=== PATIENT | female | born 1970 | race Caucasian/White ===

== ENCOUNTER 2017-07-12 19:06 | Emergency (ER) | payer OTHER ==
--- NOTE | 2017-07-12 22:07 | RAD ---
INDICATION: Jaw and left arm pain COMPARISON: Chest x-ray June 30, 2012 TECHNIQUE: Single AP portable view of the chest was obtained. FINDINGS: Image quality is compromised due to the relative inferiority of a portable chest x-ray. The heart and mediastinum exhibit normal size and contour. The lungs are grossly clear. There is no evidence of a large pleural effusion. Visualized bones are normal for the patient's age. IMPRESSION: No radiographic evidence for acute cardiopulmonary abnormality on this portable chest x-ray.
[2017-07-12 22:56] LABS: ABS Basophils 0.1 10^3/ul (0-0.2); ABS Eosinophils 0.2 10^3/ul (0-0.6); ABS Lymphocytes 1.3 10^3/ul (1.0-4.8); ABS Monocytes 0.6 10^3/ul (0-0.8); ABS Neutrophils 5.2 10^3/ul (1.5-7.7)
--- NOTE | 2017-07-12 22:58 | ED ---
HPI Chest Pain - HPI Summary HPI Summary: Patient complains of cough 1 month, an episode of chest discomfort last night for a couple minutes, sudden onset right jaw pain radiating to left jaw today for about 5-10 minutes with left upper arm pain. Symptoms are resolved with no active symptoms here in the ED currently. Patient denies fever, sore throat, SOB, N/V/D, abdominal pain, change in urinary BM. Medical history is HTN. Denies prior cardiac history. Parents both had cardiac disease in their 70s. Nonsmoker. Denies legal or illegal stimulants except for coffee. Denies any recent increase in fatigue, or CP, SOB with exertion. - History of Current Complaint Chief Complaint: EDFacialInjury Time Seen by Provider: 07/12/17 21:15 Hx Obtained From: Patient Hx Last Menstrual Period: 09/16/15 Pain Intensity: 0 - Allergy/Home Medications Allergies/Adverse Reactions: Allergies Allergy/AdvReac Type Severity Reaction Status Date / Time No Known Allergies Allergy Verified 07/12/17 21:53 PMH/Surg Hx/FS Hx/Imm Hx Endocrine/Hematology History: Reports: Hx Anemia Cardiovascular History: Reports: Hx Hypertension - Cancer History Hx Chemotherapy: No Hx Radiation Therapy: No - Surgical History Surgery Procedure, Year, and Place: T&A Infectious Disease History: No Infectious Disease History: Reports: Hx Shingles Denies: Traveled Outside the [place] in Last 30 Days - Family History Known Family History: Positive: None, Hypertension - mother and father - Social History Alcohol Use: Occasionally Hx Substance Use: No Substance Use Type: Reports: None Hx Tobacco Use: No Smoking Status (MU): Never Smoked Tobacco Review of Systems Constitutional: Negative Eyes: Negative ENT: Negative Positive: Chest Pain Positive: Cough Gastrointestinal: Negative Genitourinary: Negative Positive: Other Skin: Negative Neurological: Negative Psychological: Normal All Other Systems Reviewed And Are Negative: Yes Physical Exam - Summary Physical Exam Summary: Full range of motion of jaw with out pain. Bilateral jaws nontender to palpation. No intraoral lesions. ENT exam normal. Submandibular lymph nodes nontender to palpation. No indication of mastoid erythema or tenderness bilaterally. Full range of motion of left arm with no indication of pain at shoulder, elbow or wrist joints. Lung sounds CTAB. CP from last night nonreproducible with palpation No abnormalities noted on physical exam in area of thyroid Triage Information Reviewed: Yes Vital Signs On Initial Exam: Initial Vitals Temp Pulse Resp BP Pulse Ox 97.5 F 92 16 180/100 99 07/12/17 19:14 07/12/17 19:14 07/12/17 19:14 07/12/17 19:14 07/12/17 19:14 Vital Signs Reviewed: Yes Appearance: Positive: Well-Appearing Skin: Positive: Warm Head/Face: Positive: Normal Head/Face Inspection Eyes: Positive: Normal ENT: Positive: Normal ENT inspection Neck: Positive: Supple Respiratory/Lung Sounds: Positive: Clear to Auscultation Cardiovascular: Positive: Normal Abdomen Description: Positive: Nontender Musculoskeletal: Positive: Normal Neurological: Positive: Normal Psychiatric: Positive: Normal AVPU Assessment: Alert - Odilon Coma Scale Best Eye Response: 4 - Spontaneous Best Motor Response: 6 - Obeys Commands Best Verbal Response: 5 - Oriented Coma Scale Total: 15 Diagnostics - Vital Signs Vital Signs Temp Pulse Resp BP Pulse Ox 07/12/17 19:14 97.5 F 92 16 180/100 99 - Laboratory Result Diagrams: 07/12/17 22:35 07/12/17 22:35 Lab Statement: Any lab studies that have been ordered have been reviewed, and results considered in the medical decision making process. - Radiology cxr Xray Interpretation: No Acute Changes Radiology Interpretation Completed By: Radiologist - EKG 1 Cardiac Rate: NL EKG Rhythm: Sinus Rhythm ST Segment: Non-Specific Ectopy: None Re-Evaluation - Re-Evaluation 1 Re-Evaluation Time: 00:03 Change: Unchanged Comment: Continues to be symptom free Chest Pain Course/Dx - Course Course Of Treatment: Patient complains of cough 1 month, an episode of chest discomfort last night for a couple minutes, sudden onset right jaw pain radiating to left jaw today for about 5-10 minutes with left upper arm pain. Symptoms are resolved with no active symptoms here in the ED currently. Patient denies fever, sore throat, SOB, N/V/D, abdominal pain, change in urinary BM. Medical history is HTN. Denies prior cardiac history. Parents both had cardiac disease in their 70s. Nonsmoker. Denies legal or illegal stimulants except for coffee. Denies any recent increase in fatigue, or CP, SOB with exertion. Discussed pt with Dr Moreno. Labs and imaging unremarkable except for low potassium and elevated TSH of 11.86. Potassium 40 meq given here in the ED. Will recommend follow-up with primary care for evaluation of hypothyroidism - Diagnoses Provider Diagnoses: Jaw pain, Low TSH level, Hypokalemia Discharge - Sign-Out/Discharge Documenting (check all that apply): Discharge/Admit/Transfer - Discharge Plan Condition: Stable Disposition: HOME Patient Education Materials: Hypokalemia (ED), Hypothyroidism (ED), Temporomandibular Disorder (ED) Referrals: Liu Orellana MD [Primary Care Provider] - Additional Instructions: Follow-up with primary care for further evaluation of elevated TSH levels and possible hypothyroidism. Return to ED for any new or worsening symptoms - Billing Disposition and Condition Condition: STABLE Disposition: HOME
[2017-07-12 22:59] LABS: EGFR Non-African American 88.9 (>60)
[2017-07-12 23:02] LABS: INR 0.92 (0.77-1.02)
[2017-07-12 23:04] LABS: Hematocrit 36 % (35-47); Hemoglobin 11.7 g/dl (12.0-16.0); Mean Corpuscular HGB Conc 33 g/dl (31-36); Mean Corpuscular Hemoglobin 25 pg (27-31); Mean Corpuscular Volume 76 fL (80-97); Mean Platelet Volume 7.9 um3 (7.4-10.4); Platelet Count 266 10^3/ul (150-450); Red Blood Count 4.71 10^6/ul (4.0-5.4); White Blood Count 7.4 10^3/ul (3.5-10.8)
[2017-07-12] MEDS ORDERED: Potassium Chlor TAB* 20 MEQ TAB.ER PO ONE (23:42)
[2017-07-12 23:51] LABS: ABS Nucleated RBC 0 10^3/ul; Eosinophil % 3.4 % (0-6); Lymphocyte % 17.8 % (25-47); Nucleated Red Blood Cells % 0; Red Cell Distribution Width 31 % (10.5-15)
[2017-07-13 00:33] VITALS: BP 143/92
== END 2017-07-13 00:33 | disposition home or self-care (01) ==
LOC: ED 19:06
DX: R68.84 Jaw pain (principal); R94.6 Abnormal results of thyroid function studies; E87.6 Hypokalemia; I10 Essential (primary) hypertension; Z82.49 Family history of ischemic heart disease and other diseases of the circulatory system
CPT/HCPCS: 36415; 71045; 80053; 83605; 83735; 84443; 84484; 85025; 85060; 85610; 85730; 93005; 99282; A9270-GY

== ENCOUNTER 2018-04-09 13:00 | Emergency (ER) | payer OTHER ==
[2018-04-09 14:10] LABS: ABS Basophils 0 10^3/ul (0-0.2); ABS Eosinophils 0.2 10^3/ul (0-0.6); ABS Lymphocytes 1.2 10^3/ul (1.0-4.8); ABS Monocytes 0.5 10^3/ul (0-0.8); ABS Neutrophils 5.1 10^3/ul (1.5-7.7); ABS Nucleated RBC 0 10^3/ul; Eosinophil % 2.1 %; Hematocrit 42 % (35-47); Hemoglobin 14.2 g/dl (12.0-16.0); Lymphocyte % 17.5 %; Mean Corpuscular HGB Conc 34 g/dl (31-36); Mean Corpuscular Hemoglobin 30 pg (27-31); Mean Corpuscular Volume 88 fL (80-97); Mean Platelet Volume 8.3 fL (7.4-10.4); Nucleated Red Blood Cells % 0; Platelet Count 254 10^3/ul (150-450); Red Blood Count 4.82 10^6/ul (4.00-5.40); Red Cell Distribution Width 14 % (10.5-15)
[2018-04-09 14:28] LABS: Albumin 4.2 g/dL (3.2-5.2); Albumin/Globulin Ratio 1.4 (1-3); BUN/Creatinine Ratio 16.4 (8-20); Calcium 9.8 mg/dL (8.6-10.3); EGFR African American 102.1 (>60); EGFR Non-African American 84.4 (>60); Globulin 2.9 g/dL (2-4); Potassium 3.7 mmol/L (3.5-5.0); Total Bilirubin 0.5 mg/dL (0.2-1.0); Total Protein 7.1 g/dL (6.4-8.9)
--- NOTE | 2018-04-09 16:24 | ED ---
HPI Chest Pain - HPI Summary HPI Summary: This patient is a 48-year-old female who presents to the emergency department with a chief complaint of having chest pain. She reports that the pain is a dull ache which started this morning and usually lasts for a few minutes and then resolves. The patient reports that is not associated with exertion. She reports that it started when she was sitting in at her desk in front of her computer. She also reports that on Saturday she started having a left upper extremity pain with radiation to her jaw. In the ED the patient reports no chest pain, no shortness of breath, no nausea, no vomiting, no dizziness or palpitation. Patient has no other complaints. She also reports that she had some nausea without vomiting when she had the left upper extremity pain with radiation to her jaw. She has history hypertension but denies any dyslipidemia or diabetes. She reports that she had another stress test done 5 years ago which was negative. She has no other complaints. - History of Current Complaint Chief Complaint: EDChestPainROMI Time Seen by Provider: 04/09/18 16:10 Hx Obtained From: Patient Hx Last Menstrual Period: 09/16/15 Onset/Duration: Started Hours Ago, Started Days Ago, Resolved Time of Onset: 12:00 Timing: Intermittent Initial Severity: Mild Current Severity: Mild Pain Intensity: 2 Chest Pain Location: Left Lateral Chest Pain Radiates: No Character: Other: - Dull ache Aggravating Factor(s): Nothing Alleviating Factor(s): Nothing Associated Signs and Symptoms: Positive: Negative Related History: Obesity - Risk Factors Pulmonary Embolism Risk Factors: Negative TAD Risk Factors: Hypertension AMI/ACS Risk Factors: Hypertension - Allergy/Home Medications Allergies/Adverse Reactions: Allergies Allergy/AdvReac Type Severity Reaction Status Date / Time No Known Allergies Allergy Verified 04/09/18 13:08 PMH/Surg Hx/FS Hx/Imm Hx Previously Healthy: Yes Endocrine/Hematology History: Reports: Hx Anemia Cardiovascular History: Reports: Hx Hypertension - Cancer History Hx Chemotherapy: No Hx Radiation Therapy: No - Surgical History Surgery Procedure, Year, and Place: T&A Infectious Disease History: No Infectious Disease History: Reports: Hx Shingles Denies: Traveled Outside the [place] in Last 30 Days - Family History Known Family History: Positive: None, Hypertension - mother and father - Social History Alcohol Use: Occasionally Hx Substance Use: No Substance Use Type: Reports: None Hx Tobacco Use: No Smoking Status (MU): Never Smoked Tobacco Review of Systems Constitutional: Negative Eyes: Negative ENT: Negative Positive: Chest Pain Respiratory: Negative Gastrointestinal: Negative Genitourinary: Negative Musculoskeletal: Negative Skin: Negative Neurological: Negative Psychological: Normal All Other Systems Reviewed And Are Negative: Yes Physical Exam - Summary Physical Exam Summary: VITAL SIGNS: Reviewed. GENERAL: Patient is an obese female who is lying comfortable in the stretcher. Patient is not in any acute respiratory distress. HEAD AND FACE: No signs of trauma. No ecchymosis, hematomas or skull depressions. No sinus tenderness. EYES: PERRLA, EOMI x 2, No injected conjunctiva, no nystagmus. EARS: Hearing grossly intact. Ear canals and tympanic membranes are within normal limits. MOUTH: Oropharynx within normal limits. NECK: Supple, trachea is midline, no adenopathy, no JVD, no carotid bruit, no c- spine tenderness, neck with full ROM. CHEST: Symmetric, no tenderness at palpation LUNGS: Clear to auscultation bilaterally. No wheezing or crackles. CVS: Regular rate and rhythm, S1 and S2 present, no murmurs or gallops appreciated. ABDOMEN: Soft, non-tender. No signs of distention. No rebound no guarding, and no masses palpated. Bowel sounds are normal. EXTREMITIES: FROM in all major joints, no edema, no cyanosis or clubbing. NEURO: Alert and oriented x 3. No acute neurological deficits. Speech is normal and follows commands. SKIN: Dry and warm Vital Signs On Initial Exam: Initial Vitals Temp Pulse Resp BP Pulse Ox 98.6 F 83 17 175/111 98 04/09/18 13:04 04/09/18 13:04 04/09/18 13:04 04/09/18 13:04 04/09/18 13:04 Diagnostics - Vital Signs Vital Signs Temp Pulse Resp BP Pulse Ox 04/09/18 14:06 99.0 F 83 14 150/93 100 04/09/18 13:04 98.6 F 83 17 175/111 98 - Laboratory Lab Results: Lab Results 04/09/18 04/09/18 04/09/18 Range/Units 13:52 13:52 13:52 WBC 7.0 (3.5-10.8) 10^3/ul RBC 4.82 (4.00-5.40) 10^6/ul Hgb 14.2 (12.0-16.0) g/dl Hct 42 (35-47) % MCV 88 (80-97) fL MCH 30 (27-31) pg MCHC 34 (31-36) g/dl RDW 14 (10.5-15) % Plt Count 254 (150-450) 10^3/ul MPV 8.3 (7.4-10.4) fL Neut % (Auto) 73.1 % Lymph % (Auto) 17.5 % [place] % (Auto) 6.9 % Eos % (Auto) 2.1 % Baso % (Auto) 0.4 % Absolute Neuts (auto) 5.1 (1.5-7.7) 10^3/ul Absolute Lymphs (auto) 1.2 (1.0-4.8) 10^3/ul Absolute Monos (auto) 0.5 (0-0.8) 10^3/ul Absolute Eos (auto) 0.2 (0-0.6) 10^3/ul Absolute Basos (auto) 0 (0-0.2) 10^3/ul Absolute Nucleated RBC 0 10^3/ul Nucleated RBC % 0 Sodium 135 (135-145) mmol/L Potassium 3.7 (3.5-5.0) mmol/L Chloride 101 (101-111) mmol/L Carbon Dioxide 26 (22-32) mmol/L Anion Gap 8 (2-11) mmol/L BUN 12 (6-24) mg/dL Creatinine 0.73 (0.51-0.95) mg/dL Est GFR ( Amer) 102.1 (>60) Est GFR (Non-Af Amer) 84.4 (>60) BUN/Creatinine Ratio 16.4 (8-20) Glucose 93 (70-100) mg/dL Lactic Acid 0.5 (0.5-2.0) mmol/L Calcium 9.8 (8.6-10.3) mg/dL Total Bilirubin 0.50 (0.2-1.0) mg/dL AST 15 (13-39) U/L ALT 11 (7-52) U/L Alkaline Phosphatase 23 L (34-104) U/L Troponin I 0.00 (<0.04) ng/mL Total Protein 7.1 (6.4-8.9) g/dL Albumin 4.2 (3.2-5.2) g/dL Globulin 2.9 (2-4) g/dL Albumin/Globulin Ratio 1.4 (1-3) Result Diagrams: 04/09/18 13:52 04/09/18 13:52 Lab Statement: Any lab studies that have been ordered have been reviewed, and results considered in the medical decision making process. Chest Pain Course/Dx - Course Assessment/Plan: Lab work without any significant abnormality. 2 troponins 4 hours apart as 0.00. The patient continues to be asymptomatic in the ED. The heart score is equal to 2 which is a low risk for coronary artery disease. Since the patient continued to be asymptomatic and the blood test results are negative I discussed my physical exam and findings with the patient and he to follow-up with primary care physician as well as cardiology. The patient may benefit from another stress test but I think he could be done as an outpatient. However she was recommended to return to the emergency department if she develops more chest pain, syndrome or shortness of breath, nausea vomiting or diaphoresis. The patient understands and agrees. I discussed and answered all her questions at satisfaction and she has no further concerns. - Chest Pain Differential Diagnosis/HQI/PQRI: Acute SD, ACS, Angina, CHF, Chest Wall, GI Disease, Lower Respiratory Infection, Pulmonary Edema - Diagnoses Provider Diagnoses: Atypical chest pain Discharge - Sign-Out/Discharge Documenting (check all that apply): Patient Departure Patient Received Moderate/Deep Sedation with Procedure: No - Discharge Plan Condition: Stable Disposition: HOME Patient Education Materials: Chest Pain (ED) Referrals: Liu Orellana MD [Primary Care Provider] - Additional Instructions: Patient she'll follow-up with primary care physician in 2-3 days. She was also recommended to follow with cardiology as needed. She was recommended to return to the emergency department if she develops any other chest pain or any other symptom. The patient understands and agrees. - Billing Disposition and Condition Condition: STABLE Disposition: Home - Attestation Statements Document Initiated by Trace: No
[2018-04-09 18:27] VITALS: BP 151/98
== END 2018-04-09 18:27 | disposition home or self-care (01) ==
LOC: ED 13:00
DX: R07.89 Other chest pain (principal); I10 Essential (primary) hypertension; D64.9 Anemia, unspecified
CPT/HCPCS: 36415; 71045; 80053; 83605; 84484; 85025; 93005; 99283

== ENCOUNTER 2019-04-20 14:28 | Emergency (ER) | payer OTHER ==
[2019-04-20 14:55] LABS: ABS Eosinophils 0.2 10^3/ul (0-0.6); ABS Lymphocytes 1.6 10^3/ul (1.0-4.8); ABS Monocytes 0.5 10^3/ul (0-0.8); ABS Neutrophils 5.3 10^3/ul (1.5-7.7); Eosinophil % 2.1 %; Hematocrit 40 % (35-47); Hemoglobin 13.5 g/dL (12.0-16.0); Lymphocyte % 21.3 %; Mean Corpuscular HGB Conc 34 g/dL (31-36); Mean Corpuscular Hemoglobin 29 pg (27-31); Mean Corpuscular Volume 85 fL (80-97); Mean Platelet Volume 7.9 fL (7.4-10.4); Platelet Count 303 10^3/uL (150-450); Red Blood Count 4.72 10^6 /uL (3.70-4.87); Red Cell Distribution Width 15 % (10-15); White Blood Count 7.6 10^3/uL (3.5-10.8)
[2019-04-20 15:03] LABS: Activated Partial Thrombo Time 34.5 seconds (26.0-38.0); INR 1.03 (0.82-1.09)
[2019-04-20 15:17] LABS: CKMB ng/mL 1.5 ng/mL (0.6-6.3)
[2019-04-20 15:19] LABS: Albumin 4.3 g/dL (3.2-5.2); Albumin/Globulin Ratio 1.5 (1-3); BUN/Creatinine Ratio 14.1 (8-20); EGFR African American 118.4 (>60); EGFR Non-African American 97.8 (>60); Globulin 2.8 g/dL (2-4); Magnesium 1.9 mg/dL (1.9-2.7); Potassium 3.2 mmol/L (3.5-5.0); Total Bilirubin 0.3 mg/dL (0.2-1.0); Total Protein 7.1 g/dL (6.4-8.9)
--- NOTE | 2019-04-20 15:32 | ED ---
HPI Chest Pain - HPI Summary HPI Summary: 49 year old F presenting to [facility] with a chief complaint of chest pain which she describes as a pressure since earlier today while she was working. The patient rates the pain 2/10 in severity. Symptoms aggravated by nothing. Symptoms alleviated by nothing. Patient reports feeling flushed at the onset of her symptoms. She states that she felt similar symptoms last night which lasted a couple of minutes. Patient also reports right calf pain 2 days ago which has resolved. Patient denies any shortness of breath, leg swelling, nausea, dizziness, or vomiting. The patient has a history of hypertension. She denies any history of diabetes. She has recently flown to [place] on flights lasting approximately two hours. She has a family history of an [place] at a young age, diabetes, and hypertension. She admits to occasional alcohol use but denies any active history of smoking or recreational drug use. Medication list reviewed. Allergy list reviewed. Home Medications Medication Instructions Recorded Confirmed Type Cyclobenzaprine TAB* [Flexeril 10 mg PO BEDTIME PRN 10/08/15 07/12/17 History TAB*] Hydrochlorothiazide TAB* 25 mg PO DAILY 10/08/15 07/12/17 History [Hydrodiuril TAB*] Ibuprofen TAB* [Advil TAB*] 600 mg PO Q6H PRN 10/08/15 07/12/17 History - History of Current Complaint Chief Complaint: EDChestPainROMI Time Seen by Provider: 04/20/19 14:45 Hx Obtained From: Patient Onset/Duration: Still Present Timing: Constant Initial Severity: Mild Current Severity: Mild Pain Intensity: 2 Pain Scale Used: 0-10 Numeric Character: Pressure/Squeezing Aggravating Factor(s): Nothing Alleviating Factor(s): Nothing Associated Signs and Symptoms: Positive: Negative - Leg swelling. Negative: Dizziness, Shortness of Breath, Nausea, Vomiting - Allergy/Home Medications Allergies/Adverse Reactions: Allergies Allergy/AdvReac Type Severity Reaction Status Date / Time No Known Allergies Allergy Verified 04/20/19 14:35 Home Medications: Home Medications Hydrochlorothiazide TAB* [Hydrodiuril TAB*] 25 mg PO DAILY 10/08/15 [History Confirmed 04/20/19] Ibuprofen TAB* [Advil TAB*] 600 mg PO Q6H PRN 10/08/15 [History Confirmed ] Levothyroxine Sodium [Synthroid] 25 mcg PO DAILY 04/20/19 [History Confirmed 10/31] Losartan TAB* [Cozaar TAB*] 25 mg PO DAILY 04/20/19 [History Confirmed 04/20/19] PMH/Surg Hx/FS Hx/Imm Hx Endocrine/Hematology History: Reports: Hx Anemia Denies: Hx Diabetes Cardiovascular History: Reports: Hx Angina, Hx Hypertension Denies: Hx Coronary Artery Disease, Hx Hypercholesterolemia, Hx Myocardial Infarction, Hx Pacemaker/ICD, Hx Valvular Heart Disease Respiratory History: Denies: Hx Asthma, Hx Chronic Obstructive Pulmonary Disease (COPD) History: Denies: Hx Chronic Renal Failure - Cancer History Hx Chemotherapy: No Hx Radiation Therapy: No - Surgical History Surgery Procedure, Year, and Place: T&A Infectious Disease History: No Infectious Disease History: Reports: Hx Shingles Denies: Hx Clostridium Difficile, Hx Hepatitis, Hx Human Immunodeficiency Virus (HIV), Hx of Known/Suspected MRSA, Hx Tuberculosis, History Other Infectious Disease, Traveled Outside the [place] in Last 30 Days - Family History Known Family History: Positive: Cardiac Disease - [place] at a young age, Hypertension - mother and father, Diabetes - Social History Alcohol Use: Occasionally Hx Substance Use: No Substance Use Type: Reports: None Hx Tobacco Use: No Smoking Status (MU): Never Smoked Tobacco Review of Systems Positive: Chest Pain Negative: Shortness Of Breath Negative: Vomiting, Nausea Musculoskeletal: Negative - Leg swelling Positive: Other - Right calf pain Neurological/Mental Status: Negative - Dizziness All Other Systems Reviewed And Are Negative: Yes Physical Exam - Summary Physical Exam Summary: VITAL SIGNS: Reviewed. GENERAL: Patient is a well-developed and nourished female who is lying comfortable in the stretcher. Patient is not in any acute respiratory distress. HEAD AND FACE: No signs of trauma. No ecchymosis, hematomas or skull depressions. No sinus tenderness. EYES: PERRLA, EOMI x 2, No injected conjunctiva, no nystagmus. EARS: Hearing grossly intact. Ear canals and tympanic membranes are within normal limits. MOUTH: Oropharynx within normal limits. NECK: Supple, trachea is midline, no adenopathy, no JVD, no carotid bruit, no c- spine tenderness, neck with full ROM. CHEST: Symmetric, no tenderness at palpation. LUNGS: Clear to auscultation bilaterally. No wheezing or crackles. CVS: Regular rate and rhythm, S1 and S2 present, no murmurs or gallops appreciated. ABDOMEN: Soft, non-tender. No signs of distention. No rebound, no guarding, and no masses palpated. Bowel sounds are normal. EXTREMITIES: FROM in all major joints, no edema, no cyanosis or clubbing. NEURO: Alert and oriented x 3. No acute neurological deficits. Speech is normal and follows commands. SKIN: Dry and warm. Triage Information Reviewed: Yes Vital Signs On Initial Exam: Initial Vitals Temp Pulse Resp BP Pulse Ox 98.5 F 86 18 184/104 100 04/20/19 14:30 04/20/19 14:30 04/20/19 14:30 04/20/19 14:30 04/20/19 14:30 Vital Signs Reviewed: Yes Procedures - Sedation Patient Received Moderate/Deep Sedation with Procedure: No Diagnostics - Vital Signs Vital Signs Temp Pulse Resp BP Pulse Ox 04/20/19 14:57 89 100 04/20/19 14:30 98.5 F 86 18 184/104 100 - Laboratory Lab Results: Lab Results 04/20/19 04/20/19 04/20/19 Range/Units 14:43 14:43 14:43 WBC 7.6 (3.5-10.8) 10^3/uL RBC 4.72 (3.70-4.87) 10^6 /uL Hgb 13.5 (12.0-16.0) g/dL Hct 40 (35-47) % MCV 85 (80-97) fL MCH 29 (27-31) pg MCHC 34 (31-36) g/dL RDW 15 (10-15) % Plt Count 303 (150-450) 10^3/uL MPV 7.9 (7.4-10.4) fL Neut % (Auto) 69.9 % Lymph % (Auto) 21.3 % [place] % (Auto) 6.1 % Eos % (Auto) 2.1 % Baso % (Auto) 0.6 % Absolute Neuts (auto) 5.3 (1.5-7.7) 10^3/ul Absolute Lymphs (auto) 1.6 (1.0-4.8) 10^3/ul Absolute Monos (auto) 0.5 (0-0.8) 10^3/ul Absolute Eos (auto) 0.2 (0-0.6) 10^3/ul Absolute Basos (auto) 0.0 (0-0.2) 10^3/ul Absolute Nucleated RBC 0.0 10^3/ul Nucleated RBC % 0.0 INR (Anticoag Therapy) 1.03 (0.82-1.09) APTT 34.5 (26.0-38.0) seconds Sodium 136 (135-145) mmol/L Potassium 3.2 L (3.5-5.0) mmol/L Chloride 100 L (101-111) mmol/L Carbon Dioxide 28 (22-32) mmol/L Anion Gap 8 (2-11) mmol/L BUN 9 (6-24) mg/dL Creatinine 0.64 (0.51-0.95) mg/dL Est GFR ( Amer) 118.4 (>60) Est GFR (Non-Af Amer) 97.8 (>60) BUN/Creatinine Ratio 14.1 (8-20) Glucose 120 H (70-100) mg/dL Calcium 10.0 (8.6-10.3) mg/dL Magnesium 1.9 (1.9-2.7) mg/dL Total Bilirubin 0.30 (0.2-1.0) mg/dL AST 15 (13-39) U/L ALT 12 (7-52) U/L Alkaline Phosphatase 27 L (34-104) U/L Total Creatine Kinase 69 (10-223) U/L CK-MB (CK-2) 1.5 (0.6-6.3) ng/mL Troponin I 0.00 (<0.03) ng/mL Total Protein 7.1 (6.4-8.9) g/dL Albumin 4.3 (3.2-5.2) g/dL Globulin 2.8 (2-4) g/dL Albumin/Globulin Ratio 1.5 (1-3) TSH Pending Result Diagrams: 04/20/19 14:43 04/20/19 14:43 Lab Statement: Any lab studies that have been ordered have been reviewed, and results considered in the medical decision making process. - Radiology Chest x-ray Radiology Interpretation Completed By: Radiologist Summary of Radiographic Findings: No acute pulmonary or cardiac process evident. ED physician has reviewed this report. - EKG 14:33 Cardiac Rate: NL - 93 BPM EKG Rhythm: Sinus Rhythm Summary of EKG Findings: ST depression in leads L1, L2, and V3-V6. ED physician has reviewed and interpreted this EKG. Chest Pain Course/Dx - Course Assessment/Plan: 49 year old F presenting to [facility] with a chief complaint of chest pain which she describes as a pressure since earlier today while she was working. The patient rates the pain 2/10 in severity. Symptoms aggravated by nothing. Symptoms alleviated by nothing. Patient reports feeling flushed at the onset of her symptoms. She states that she felt similar symptoms last night which lasted a couple of minutes. Patient also reports right calf pain 2 days ago which has resolved. Patient denies any shortness of breath, leg swelling, nausea, dizziness, or vomiting. The patient has a history of hypertension. She denies any history of diabetes. She has recently flown to [place] on flights lasting approximately two hours. She has a family history of an [place] at a young age, diabetes, and hypertension. She admits to occasional alcohol use but denies any active history of smoking or recreational drug use. Medication list reviewed. Allergy list reviewed. In the ED course the patient was placed on a manager care management, IV access was obtained, IV fluids started. She was given Aspirin and Nitroglycerin for pain. Past medical records reviewed. Blood test w/o a significant abnormality except for potassium is 3.2, chloride 100, glucose 120, and alkaline phosphatase is 27. First troponin 0.00. D dimer is < 200. Urinalysis is negative for UTI. Chest x-ray impression: No acute pulmonary or cardiac process evident. EKG shows a normal sinus rhythm at [address] elevation. positive ST depressions in V3 to V6. This EKG is similar to previous EKG done on 04/09/18. Patient also had a stress test which was negative in April 2018. Second troponin is also 0.00. Patient reports that all symptoms have resolved. Patient Heart score is: 3 therefore, low suspicion for CAD. Patient is not hypoxic or tachycardic. Wells criteria 0 . Therefore, no suspicion for PE. Patient has no abdominal bruit thus no suspicion for AAA. Patients pain does not radiate to the back and pain has resolved thus low suspicion for aortic dissection. I discussed all the findings and test results with the patient. Patient was instructed to return to the emergency room immediately if any of the symptoms return or worsen. Patient understands and agrees. Plan of care was discussed with the patient and patient understands and agrees. All questions were answered at patient satisfaction. There were no further complaints or concerns. PE before discharge : CVS: S1 and S2 present. No murmurs appreciated. Abdominal exam before discharge: Soft, non-tender. No signs of distention. No rebound no guarding, and no masses palpated. Bowel sounds are normal. Patient is alert and oriented x 3. Patient is hemodynamically stable. - Chest Pain Differential Diagnosis/HQI/PQRI: Acute [place], ACS, Angina, CHF, Chest Wall, GI Disease, Pulmonary Edema - Diagnoses Provider Diagnoses: Atypical chest pain - Provider Notifications Discussed Care Of Patient With: Wilma Wagner Time Discussed With Above Provider: 16:45 - Spoke with Dr. Wagner regarding the patient. Discharge ED - Sign-Out/Discharge Documenting (check all that apply): Patient Departure - Discharge Plan Condition: Stable Disposition: HOME Patient Education Materials: Chest Pain (ED) Referrals: Liu Orellana MD [Primary Care Provider] - 3 Days Additional Instructions: Follow up with your primary care provider within 3 days for chest pain noted today. Return to the emergency department for any worsening or new symptoms. - Billing Disposition and Condition Condition: STABLE Disposition: Home - Attestation Statements Document Initiated by Trace: Yes Documenting Scribe: Herlinda Smith Provider For Whom Edgaribe is Documenting (Include Credential): Garfield Mc MD Scribe Attestation: Herlinda Miller scribed for Garfield Mc MD on 04/21/19 at 1139. Scribe Documentation Reviewed: Yes Provider Attestation: The documentation as recorded by the Herlinda menjivar accurately reflects the service I personally performed and the decisions made by , Garfield Mc MD Status of Scribe Document: Viewed
[2019-04-20] MEDS ORDERED: Aspirin 81 mg CHEW TAB* 81 MG TAB.CHEW PO ONE (16:05)
[2019-04-20] MEDS ORDERED: NS 0.9% 1000 ML** 1,000 ML IV ONE (16:05)
[2019-04-20] MEDS ORDERED: Nitroglycerin TAB 0.4 MG* 0.4 MG TAB SL ONE (16:06)
[2019-04-20 16:17] LABS: Urine Appearance Clear; Urine Bilirubin Negative (Negative); Urine Blood Negative (Negative); Urine Color Straw; Urine Glucose Negative (Negative); Urine Ketones Negative (Negative); Urine Nitrite Negative (Negative); Urine Protein Negative (Negative); Urine Specific Gravity 1.004 (1.010-1.030); Urine Urobilinogen Negative (Negative)
[2019-04-20 17:18] LABS: TSH (Thyroid Stimulating Horm) 3.11 mcIU/mL (0.34-5.60)
[2019-04-20 18:28] VITALS: BP 162/94
== END 2019-04-20 18:27 | disposition home or self-care (01) ==
LOC: ED 14:28
DX: R07.89 Other chest pain (principal); Z79.899 Other long term (current) drug therapy; I10 Essential (primary) hypertension; M79.661 Pain in right lower leg
CPT/HCPCS: 36415; 71045; 80053; 81003; 82550; 82553; 83735; 83880; 84443; 84484; 85025; 85379; 85610; 85730; 93005; 96360; 96361; 99283; A9270-GY